=== PATIENT | male | born 1935 | race Caucasian/White ===

== ENCOUNTER 2019-06-30 12:28 | Emergency (ER) | payer MEDICARE, OTHER ==
--- NOTE | 2019-06-30 12:35 | ED Physician Documentation ---
Fall - HISTORIAN Historian: patient - HPI Stated Complaint: fall, wrist and back pain Chief Complaint: Fall Additional Information: Patient presents to ED after falling going into [facility] yesterday. He complains of wrist and back pain. He denies hitting his head and did not lose consciousness. Onset: yesterday Where: other ([facility]) Context: slipped r: mild Associated Symptoms:: no loss of consciousness Location of Pain/Injury: lower back, upper extremity (wrist) Injury to Right Extremity: none Injury to Left Extremity: wrist Further Comments: no - ROS CONST: no problems NEURO: denies: dizziness MS/SKIN/LYMPH: back pain. denies: weakness, numbness EYES/ENT: none CVS/RESP: none GI/: denies: nausea, vomiting - PAST HX Past History: none Allergies/Adverse Reactions: Allergies Allergy/AdvReac Type Severity Reaction Status Date / Time No Known Allergies Allergy Verified 06/30/19 12:41 Home Medications: Ambulatory Orders Medication Instructions Recorded Chlorthalidone [Thalitone] 0.5 tab PO DAILY 06/30/19 Diltiazem HCl [Diltiazem 24Hr Cd] 180 mg PO DAILY 06/30/19 LORazepam [Ativan] 0.5 mg PO Q6H PRN 06/30/19 Losartan Potassium [Cozaar] 100 mg PO DAILY 06/30/19 Memantine HCl/Donepezil HCl 1 cap PO DAILY 06/30/19 [Namzaric 28 mg-10 mg Capsule] Risperidone 1 tab PO DAILY 06/30/19 metFORMIN HCl [Glucophage] 1,000 mg PO BID 06/30/19 - SOCIAL HX Smoking History: non-smoker Alcohol Use: none Drug Use: none - FAMILY HX Family History: none - REVIEWED ASSESSMENTS Nursing Assessment Reviewed: Yes Vitals Reviewed: Yes ED Results Lab/Radiology - Radiology Radiology Impressions: Report Submission Date: Jun 30, 2019 1:17:44 PM HOUSING PROJECT MANAGER Patient Study Name: EDU NOGUERA Date: Jun 30, 2019 12:32:16 PM HOUSING PROJECT MANAGER Modality Type: DX Gender: M Description: WRIST 3 VIEWS OR MORE : 37 Institution: [facility] Physician: MCKENZIE RODRIGUEZ HISTORY: 83-year-old female with left wrist pain after fall. COMPARISON: None available TECHNIQUE: 3 views of the left wrist were performed. FINDINGS: No evidence of fracture, subluxation, or dislocation about the left wrist. 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 IMPRESSION: 1. No fracture of the left wrist. 2. Osteoarthritis. 3. Chondrocalcinosis of the TFCC. Electronically signed on Jun 30, 2019 1:17:44 PM HOUSING PROJECT MANAGER by: Colt Blackburn Correction: The patient is a male. Addendum electronically signed by Colt Blackburn on June 30, 2019 1:19:21 PM HOUSING PROJECT MANAGER Report Submission Date: Jun 30, 2019 1:20:12 PM HOUSING PROJECT MANAGER Patient Study Name: EDU NOGUERA Date: Jun 30, 2019 12:32:16 PM HOUSING PROJECT MANAGER Modality Type: DX Gender: M Description: T SPINE 3 VIEWS : 37 Institution: [facility] Physician: MCKENZIE RODRIGUEZ HISTORY: 83-year-old male with back pain after fall. COMPARISON: None available TECHNIQUE: AP and lateral views of the thoracic spine were performed. FINDINGS: No fracture, listhesis, or scoliosis of the thoracic spine. There is advanced degenerative disc disease with multiple bridging syndesmophytes and anteriorly projecting disc-osteophyte complexes, largest at the T8-T9 level. There is slightly exaggerated thoracic kyphosis. IMPRESSION: 1. No fracture of the thoracic spine. 2. Advanced degenerative disc disease. Report Submission Date: Jun 30, 2019 1:22:01 PM HOUSING PROJECT MANAGER Patient Study Name: EDU NOGUERA Date: Jun 30, 2019 12:32:16 PM HOUSING PROJECT MANAGER Modality Type: DX Gender: M Description: L SPINE 2 OR 3 VIEWS : 37 Institution: [facility] Physician: MCKENZIE RODRIGUEZ HISTORY: 83-year-old male with low back pain after fall. COMPARISON: None available. TECHNIQUE: AP and lateral views of the lumbar spine and spot lateral of the lumbosacral junction were performed. FINDINGS: No fracture or listhesis in the lumbar spine. There is degenerative disc disease and facet arthropathy, more severe in the lower levels. There are thick atherosclerotic calcifications of the distal abdominal aorta and common iliac arteries. Calcification in the right upper quadrant may represent gallstone. IMPRESSION: 1. No fracture of the lumbar spine. 2. Degenerative disc disease and facet arthropathy, greater in the lower levels of the lumbar spine. 3. Extensive atherosclerotic vascular disease. 4. Possible cholelithiasis. Electronically signed on Jun 30, 2019 1:22:01 PM HOUSING PROJECT MANAGER by: Colt Blackburn Electronically signed on Jun 30, 2019 1:20:12 PM HOUSING PROJECT MANAGER by: Colt Blackburn Fall Physical Exam - Physical Exam General Appearance: no acute distress, alert Head: non-tender, no swelling Neck: non-tender, painless ROM Eye: PERLA ENT: nml external inspection, no oral injury Resp/CVS: chest non-tender, breath sounds nml Abdomen: soft, normal bowel sounds Neuro: oriented x3, motor nml, mood/affect nml Skin: color nml Back: normal inspection, no vertebral tenderness Extremities: atraumatic, pelvis stable Joint: joints nml, Nml gait/weight bearing - Didi Coma Score Eyes Open: Spontaneous Speech: Oriented Motor: Obeys Commands Discharge Clincal Impression: Fall from standing Qualifiers: Encounter type: initial encounter Qualified Code(s): W19.XXXA - Unspecified fall, initial encounter Referrals: Primary Doctor,No [Primary Care Provider] - 2 Days Additional Instructions: 1. Tylenol as needed for pain 2. Apply ice to affected area as needed for comfort 3. Wear justyn bandage with activity, remove at night 4. Keep left arm elevated when at rest to help with swelling 5. Follow up with PCP within 1 week. 6. Return to ER for new or worsening symptoms Condition: Stable Disposition: 01 HOME, SELF-CARE Decision to Admit: NO Date of Decison to Admit: 06/30/19 Decision Time: 13:30
--- NOTE | 2019-06-30 13:22 | Diagnostic Imaging Report ---
PATIENT MR#: [id number] PATIENT PATIENT NAME: EDU NOGUERA DATE OF : 1935 REFERRING PHYSICIAN: Maria Guadalupe Ortega EXAM DATE: 06/30/2019 ACCESSION NUMBER: [id number] EXAM DESCRIPTION: WRIST 3 VIEWS OR MORE ADDENDUM: Correction: The patient is a male. ORY: 83-year-old female with left wrist pain after fall. COMPARISON: None available TECHNIQUE: 3 views of the left wrist were performed. FINDINGS: No evidence of fracture, subluxation, or dislocation about the left wrist. There is mild o steoarthritis of the DRUJ, radiocarpal joint, triscaphe joint; and moderate osteoarthritis of the first CMC joint. Th ere is chondrocalcinosis of the TFCC. IMPRESSION: 1. No fracture of the left wrist. 2. Osteoarthritis. 3. Chondrocalcinosis of the TFCC. Read by: Dr. Colt Blackburn Transcribed by: Transcribed Date: Electronically signed by: Dr. Colt Blackburn Date signed: 06/30/2019 1:23:37 PM
--- NOTE | 2019-06-30 13:25 | Diagnostic Imaging Report ---
PATIENT MR#: [id number] PATIENT PATIENT NAME: EDU NOGUERA DATE OF : 1935 REFERRING PHYSICIAN: Maria Guadalupe Ortega EXAM DATE: 06/30/2019 ACCESSION NUMBER: [id number] EXAM DESCRIPTION: T SPINE 3 VIEWS HISTORY: 83-year-old male with back pain after fall. COMPARISON: None available TECHNIQUE: AP and lateral views of the thoracic spine were performed. FINDINGS: No fracture, listhesis, or scoliosis of the thoracic spine. There is advanced degenerative disc disease with multiple bridging syndesmophytes and anteriorly projecting disc-osteophyte complexes, largest at the T8-T9 level. There is slightly exaggerated thoracic kyphosis. IMPRESSION: 1. No fracture of the thoracic spine. 2. Advanced degenerative disc disease. Read by: Dr. Colt Blackburn Transcribed by: Transcribed Date: Electronically signed by: Dr. Colt Blackburn Date signed: 06/30/2019 1:24:37 PM
--- NOTE | 2019-06-30 13:27 | Diagnostic Imaging Report ---
PATIENT MR#: [id number] PATIENT PATIENT NAME: EDU NOGUERA DATE OF : 1935 REFERRING PHYSICIAN: Maria Guadalupe Ortega EXAM DATE: 06/30/2019 ACCESSION NUMBER: [id number] EXAM DESCRIPTION: L SPINE 2 OR 3 VIEWS HISTORY: 83-year-old male with low back pain after fall. COMPARISON: None available. TECHNIQUE: AP and lateral views of the lumbar spine and spot lateral of the lumbosacral junction were performed. FINDINGS: No fracture or listhesis in the lumbar spine. There is degenerative disc disease and facet arthropathy, more severe in the lower levels. There are thick atherosclerotic calcifications of the distal abdominal a linette and common iliac arteries. Calcification in the right upper quadrant may represent gallstone. IMPRESSION: 1. No fracture of the lumbar spine. 2. Degenerative disc disease and facet arthropathy, greater in the lower levels of the lumbar spine. 3. Extensive atherosclerotic vascular disease. 4. Possible cholelithiasis. Read by: Dr. Colt Blackburn Transcribed by: Transcribed Date: Electronically signed by: Dr. Colt Blackburn Date signed: 06/30/2019 1:26:37 PM
[2019-06-30 13:42] VITALS: BP 132/68
== END 2019-06-30 13:42 | disposition home or self-care (01) ==
LOC: ED 12:28
DX: M25.532 Pain in left wrist (principal); M54.9 Dorsalgia, unspecified; W01.0XXA Fall on same level from slipping, tripping and stumbling without subsequent striking against object, initial encounter; Y92.89 Other specified places as the place of occurrence of the external cause
CPT/HCPCS: 99282; 99283